=== PATIENT | male | born 1945 | race Caucasian/White ===

== ENCOUNTER → 2016-09-18 | Outpatient (CLI) | payer MEDICARE ==
[~2016-09-18] MED LIST: ALPR.25T PO; AMLO10TA82 PO; ASP81TEC PO; FISH1CAP15 PO; HCTZ12.5T PO; IRBE300T9 PO; METO-272 PO; METO25TA PO; MULT-418 PO; TADA2.5T PO
[2016-09-18 09:55] LABS: BASOPHILS % (AUTO) 0 % (0-10); EOSINOPHILS # (AUTO) 0.1 10^3/uL (0.0-0.3); EOSINOPHILS % (AUTO) 1 % (0-10); LYMPHOCYTES # (AUTO) 1.5 X 10^3 (1.0-4.0); LYMPHOCYTES % (AUTO) 34 % (12-44); MEAN CORPUSCULAR HEMOGLOBIN 33 PG (25-34); MEAN CORPUSCULAR HGB CONC 36 G/DL (32-36); MEAN CORPUSCULAR VOLUME 92 FL (80-99); MEAN PLATELET VOLUME 9.4 FL (7.4-10.4); MONOCYTES # (AUTO) 0.6 X 10^3 (0.0-1.0); MONOCYTES % (AUTO) 13 % (0-12); NEUTROPHILS # (AUTO) 2.3 X 10^3 (1.8-7.8); NEUTROPHILS % (AUTO) 52 % (42-75); PLATELET COUNT 219 10^3/uL (130-400); RED CELL DISTRIBUTION WIDTH 11.8 % (10.0-14.5); RETICULOCYTE % 0.79 % (0.50-2.40); WHITE BLOOD COUNT 4.5 10^3/uL (4.3-11.0)
[2016-09-18 10:00] LABS: PATH WILL NEED TO REVIEW SMEAR PATH TO REVIEW
[2016-09-18 10:15] LABS: ANION GAP 9 MMOL/L (5-14); BLOOD UREA NITROGEN 10 MG/DL (7-18); BUN/CREATININE RATIO 12; CARBON DIOXIDE 25 MMOL/L (21-32); CHLORIDE 99 MMOL/L (98-107); CREATININE SERUM 0.83 MG/DL (0.60-1.30); GFR ESTIMATED > 60; GLUCOSE 97 MG/DL (70-105); SODIUM 133 MMOL/L (135-145)
[2016-09-18 10:32] LABS: BAND NEUTROPHILS 2 %; BASOPHILS % (MANUAL) 0 %; EOSINOPHILS % (MANUAL) 0 %; LYMPHOCYTES % (MANUAL) 40 %; NEUTROPHILS % (MANUAL) 49 %; REACTIVE LYMPHOCYTES 1 %
== END ==
LOC: LAB 09:34
PROVIDERS: ATTEND Internal Medicine
DX: D72.819 Decreased white blood cell count, unspecified (principal); E87.5 Hyperkalemia; D64.9 Anemia, unspecified
CPT/HCPCS: 36415; 80048; 85007; 85027; 85045

== ENCOUNTER → 2018-01-18 | Outpatient (CLI) | payer MEDICARE ==
[~2018-01-18] MED LIST changes: -METO-272 PO; +METO-370 PO
== END ==
LOC: CARD 08:32
PROVIDERS: ATTEND Internal Medicine Cardiovascular Disease
DX: I10 Essential (primary) hypertension (principal); R00.2 Palpitations; I08.1 Rheumatic disorders of both mitral and tricuspid valves
CPT/HCPCS: 93306

== ENCOUNTER → 2020-08-13 | Outpatient (CLI) | payer MEDICARE ==
[~2020-08-13] MED LIST changes: -METO-370 PO; +METO50TA7 PO
== END ==
LOC: CARD 10:02
PROVIDERS: ATTEND Internal Medicine Cardiovascular Disease
DX: I11.9 Hypertensive heart disease without heart failure (principal); I34.0 Nonrheumatic mitral (valve) insufficiency
CPT/HCPCS: 93306

== ENCOUNTER → 2020-08-20 | Outpatient (CLI) | payer MEDICARE ==
[~2020-08-20] VITALS: Ht 170 cm; Wt 80.0 kg
[~2020-08-20] MED LIST changes: +CATHETER FLUSH 10 ML SYR IV PRN
[2020-08-20 08:54] VITALS: BP 136/80
--- NOTE | 2020-08-20 11:09 | Cardiology Stress Test Report ---
Stress Test Report Date of Procedure/Referring: Date of Procedure: Aug 20, 2020 PCP Ekaterina Lazo MD Admitting Physician Tavia Molina MD Indications: Hypertension Baseline Heart Rate: 85 Baseline Blood Pressure: Blood Pressure Systolic: 136 Blood Pressure Diastolic: 80 Vital Signs Date Time Temp Pulse Resp B/P (MAP) Pulse Ox O2 Delivery O2 Flow Rate FiO2 08/20/20 08:54 85 136/80 (98) 98 Baseline Vital Signs Vital Signs Date Time Temp Pulse Resp B/P (MAP) Pulse Ox O2 Delivery O2 Flow Rate FiO2 08/20/20 08:54 85 136/80 (98) 98 Baseline EKG: Baseline EKG: Atrial fibrillation Summary: After explaining the procedure and details to the patient, he signed the consent and was brought to the stress nuclear laboratory. Patient exercised on standard Alexei protocol, EKG, heart rate and blood pressure were monitored continuously, resting and stress doses of radio tracer were injected, imaging was acquired and reviewed in the short axis, horizontal long axis and vertical long axis views Patient was able to exercise for a total of [ ] minutes on Alexei protocol, METs [ ] Maximum heart rate [ ] Maximum blood pressure [ ] Stress EKG, Minimal nondiagnostic changes Recovery EKG, Return to baseline TID: 0.96 SSS: 1 SDS: 1 EF: 58 Conclusion: 1. Fair exercise tolerance for a total of 5 minutes on standard Alexei protocol, 7 METS achieving 93% of maximal expected heart rate 2. Baseline atrial fibrillation noted incidentally during stress test. Patient was started on Eliquis and will arrange for follow-up as an outpatient 3. Appropriate heart rate and blood pressure response to exercise return to baseline during recovery with peak blood pressure 172/82 4. No ischemia or infarction on SPECT images 5. Normal left ventricular size, EF 58%, gated images are unreliable due to underlying atrial fibrillation Copy Copies To 1: TAVIA MOLINA MD, BASHAR J MD Aug 20, 2020 11:09
== END ==
LOC: CARD 07:30
PROVIDERS: ATTEND Internal Medicine Cardiovascular Disease
DX: I10 Essential (primary) hypertension (principal)
CPT/HCPCS: 78452; 93017; A9502

== ENCOUNTER → 2020-09-24 | Outpatient (CLI) | payer MEDICARE ==
[~2020-09-24] MED LIST changes: +ALPR0.25 PO; +AMLO-251 PO; +ASPI-1238 PO; -CATHETER FLUSH 10 ML SYR IV PRN; +HYDR25TA4 PO; +IRBE300T17 PO; +MULT-567 PO; +OMEG-109 PO; +RIVA20TA PO; +TADA20TA54 PO
== END ==
LOC: LABNPT 08:49
PROVIDERS: ATTEND Internal Medicine Cardiovascular Disease
DX: Z01.812 Encounter for preprocedural laboratory examination (principal); Z20.822 Contact with and (suspected) exposure to COVID-19
CPT/HCPCS: 87635

== ENCOUNTER 2020-09-26 10:30 | Day surgery (SDC) | payer MEDICARE ==
[~2020-09-26] VITALS: Ht 170 cm; Wt 81.0 kg
[2020-09-26] VITALS (12 sets, daily range): BP systolic 80–126; BP diastolic 59–91
[2020-09-26 09:28] LABS: HEMATOCRIT 40 % (40-54); MEAN CORPUSCULAR HEMOGLOBIN 34 pg (25-34); MEAN CORPUSCULAR HGB CONC 35 g/dL (32-36); MEAN CORPUSCULAR VOLUME 95 fL (80-99); MEAN PLATELET VOLUME 10.1 fL (9.0-12.2); PLATELET COUNT 208 10^3/uL (130-400); WHITE BLOOD COUNT 4.4 10^3/uL (4.3-11.0)
--- NOTE | 2020-09-26 09:30 | Diagnostic Imaging Report ---
INDICATION: Arrhythmia. Portable chest 9:26 AM FINDINGS: Heart size and pulmonary vascularity are normal. Lungs are clear. There are no effusions or pneumothoraces. IMPRESSION: Negative chest. Dictated by: Dictated on workstation # [id number]
--- NOTE | 2020-09-26 09:34 | Conscious Sedation/ASA ---
Conscious Sedation Pre-Proced Time 09:34 ASA Score 3 For ASA 3 and 4: Consider anesthesia and medical clearance. Also, for patients with a history of failed moderate sedation consider anesthesia. Airway Lungs Heart ASA score ASA 1: a normal healthy patient ASA 2: a patient with a mild systemic disease (mid diabetes, controlled hypertension, obesity x ASA 3: a patient with a severe systemic disease that limits activity (angina, COPD, prior Myocardial infarction) ASA 4: a patient with an incapacitating disease that is a constant threat to life (CHF, renal failure) ASA 5: a moribund patient not expected to survive 24 hrs. (ruptured aneurysm) ASA 6: a declared brain- patient whose organs are being harvested. For emergent operations, add the letter E after the classification Mallampati Classification Grade 3 Sedation Plan Analgesia, Amnesia, Plan communicated to team members, Discussed options with patient/fam, Discussed risks with patient/fam The patient is an appropriate candidate to undergo the planned procedure, sedation, and anesthesia. The patient immediately re-assessed prior to indication. STEPHANIE CHEW MD September 26, 2020 09:34
[2020-09-26 09:42] LABS: INR 1.2 (0.8-1.4); PROTHROMBIN TIME PATIENT 15.5 SEC (12.2-14.7)
[2020-09-26 09:47] LABS: ALANINE AMINOTRANSFERASE 15 U/L (0-55); ALBUMIN 4.2 GM/DL (3.2-4.5); ALKALINE PHOSPHATASE 42 U/L (40-136); BILIRUBIN,TOTAL 0.9 MG/DL (0.1-1.0); BUN/CREATININE RATIO 12; CALCIUM 8.6 MG/DL (8.5-10.1); CARBON DIOXIDE 27 MMOL/L (21-32); CHLORIDE 100 MMOL/L (98-107); CHOLESTEROL 168 MG/DL (< 200); CREATININE SERUM 0.95 MG/DL (0.60-1.30); GFR ESTIMATED > 60; GLUCOSE 114 MG/DL (70-105); HDL CHOLESTEROL 58 MG/DL (40-60); POTASSIUM 4.2 MMOL/L (3.6-5.0); SODIUM 134 MMOL/L (135-145); TOTAL PROTEIN 6.9 GM/DL (6.4-8.2); TRIGLYCERIDES 44 MG/DL (<150); VLDL CHOLESTEROL 9 MG/DL (5-40)
--- NOTE | 2020-09-26 10:10 | Cardioversion ---
Cardioversion PROCEDURE PHYSICIAN: Stephanie Lazo DATE OF PROCEDURE: 09/26/20 DIRECT EXTERNAL ELECTRICAL CARDIOVERSION: Indications: Atrial Fibrillation Preoperative diagnoses: Atrial Fibrillation Postoperative diagnosis: Sinus rhythm, Successful Electrical Cardioversion Anesthesia: By Anesthesia services Complications: None Specimen: None Contrast: 0 Flouroscopy: none Procedure Details: The patient was brought the solar lab technician after informed consent was taken, all the risks and complications were explained including the risk of stroke. Electrical cardioversion was carried out with anesthesia support with propofol. 200 joules of synchronized shock was delivered through external patches which promptly re stored sinus rhythm. The patient tolerated the procedure well. Conclusions: Successful RIOS with electrical cardioversion with no complication Final Diagnosis: Paroxysmal atrial fibrillation Palpitation Hypertension Hyperlipidemia STEPHANIE LAZO MD September 26, 2020 10:10
--- NOTE | 2020-09-26 10:13 | Discharge Inst-Cardiology ---
Discharge Inst-Cardiac Problems Reviewed?: Yes Discharge Medications Continued Medications: Alprazolam (Xanax) 0.25 Mg Tablet 0.25 MG PO TID PRN for ANXIETY, TAB Amlodipine Besylate (Amlodipine Besylate) 10 Mg Tablet 10 MG PO DAILY, TAB Aspirin (Aspirin EC) 81 Mg Tablet.dr 81 MG PO HS, TAB Hydrochlorothiazide (Hydrochlorothiazide) 25 Mg Tablet 25 MG PO DAILY, TAB Irbesartan (Irbesartan) 300 Mg Tablet 300 MG PO DAILY, TAB Metoprolol Succinate (Metoprolol Succinate) 50 Mg Tab.er.24h 50 MG PO HS Multivitamin (Multivitamins) 1 Each Tablet 1 EACH PO HS, TAB [place]-3 Fatty Acids/Fish Oil (Fish Oil 1,200 mg Softgel) 1 Each Capsule 1 EACH PO DAILY, CAP Rivaroxaban (Xarelto) 20 Mg Tablet 20 MG PO 1800 W/ DINNER, TAB Tadalafil (Tadalafil) 20 Mg Tablet 10 MG PO UD PRN for PRN, TAB TAKES OF A 20MG TAB Patient Instructions Patient Instructions: Appointment with Dr. Mckinley's office in 2 to 4 weeks Activity & Diet Discharge Diet: Low Sodium Diet STEPHANIE CHEW MD September 26, 2020 10:13 am
[~2020-09-26 10:30] MED LIST changes: +LIDOCAINE 2% VISCOUS 15 ML UDC ONE; +LIDOCAINE 2% VISCOUS 15 ML UDC PO ONE; +MIDAZOLAM 5 MG/5 ML (VERSED) VIAL ONE; +NS IV 1000 ML 1,000 ML IV SCH; +NS IV 1000 ML 1,000 ML ONE; +proPOfol 200 MG/20 ML (DIPRIVAN) VIAL IV ONE
--- NOTE | 2020-09-26 14:20 | Anesthesia-General Post-Op ---
MAC Patient Condition Mental Status/LOC: Same as Preop Cardiovascular: Satisfactory Nausea/Vomiting: Absent Respiratory: Satisfactory Pain: Controlled Complications: Absent Post Op Complications Complications None Follow Up Care/Instructions Patient Instructions None needed. Anesthesiology Discharge Order Discharge Order Patient is doing well, no complaints, stable vital signs, no apparent adverse anesthesia problems. No complications reported per nursing. KERVIN BROWN CRNA September 26, 2020 14:20
== END 2020-09-26 12:05 | disposition home or self-care (01) ==
LOC: CATH 10:30 → SDC 10:37 → CATH 12:05
PROVIDERS: ATTEND Internal Medicine Cardiovascular Disease
DX: I48.0 Paroxysmal atrial fibrillation (principal); I10 Essential (primary) hypertension; I27.20 Pulmonary hypertension, unspecified; I65.23 Occlusion and stenosis of bilateral carotid arteries; I08.1 Rheumatic disorders of both mitral and tricuspid valves; E78.5 Hyperlipidemia, unspecified; E66.9 Obesity, unspecified; Z68.28 Body mass index [BMI] 28.0-28.9, adult; Z91.018 Allergy to other foods; Z79.82 Long term (current) use of aspirin; Z79.899 Other long term (current) drug therapy; Z83.3 Family history of diabetes mellitus
CPT/HCPCS: 36415; 71045; 80053; 80061; 85027; 85610; 85730; 87081; 92960; 93005; 93312

== ENCOUNTER 2021-03-12 05:34 | Outpatient (CLI) | payer MEDICARE ==
[~2021-03-12] VITALS: Ht 170.2 cm; Wt 82.6 kg
[~2021-03-12 05:34] MED LIST changes: -LIDOCAINE 2% VISCOUS 15 ML UDC ONE; -LIDOCAINE 2% VISCOUS 15 ML UDC PO ONE; -MIDAZOLAM 5 MG/5 ML (VERSED) VIAL ONE; -NS IV 1000 ML 1,000 ML IV SCH; -NS IV 1000 ML 1,000 ML ONE; -TADA20TA54 PO; +TADA20TA70 PO; -proPOfol 200 MG/20 ML (DIPRIVAN) VIAL IV ONE
== END 2021-03-13 14:10 | disposition home or self-care (01) ==
LOC: PREOP 05:34
PROVIDERS: ATTEND Surgery
DX: Z01.818 Encounter for other preprocedural examination (principal)

== ENCOUNTER 2021-03-19 07:03 | Day surgery (SDC) | payer MEDICARE ==
[~2021-03-19] VITALS: Ht 170 cm; Wt 82.6 kg
[2021-03-19] MEDS ORDERED: LACTATED RINGERS 1,000 ML IV STA (07:11)
[2021-03-19 07:29] VITALS: BP 151/86
[2021-03-19] MEDS ORDERED: proPOfol 200 MG/20 ML (DIPRIVAN) VIAL IV ONE (07:55)
[2021-03-19 08:35] VITALS: BP 105/62
[2021-03-19 08:40] VITALS: BP 106/57
--- NOTE | 2021-03-19 08:40 | Progress Note-Post Operative ---
Post-Operative Progess Note Surgeon (s)/Airplane Rental Clerk (s) Surgeon LIAM CHAPA DO Airplane Rental Clerk: na Pre-Operative Diagnosis history of polyps Post-Operative Diagnosis normal colon Procedure & Operative Findings Date of Procedure 03/19/21 Procedure Performed/Findings colonoscopy Anesthesia Type per loaders Estimated Blood Loss Estimated blood loss (mL): none Specimens/Packing Specimens Removed na LIAM CHAPA DO Mar 19, 2021 08:40
--- NOTE | 2021-03-19 08:41 | Discharge Inst-Simple/Standard ---
Discharge Inst-Standard Patient Instructions/Follow Up Plan of Care/Instructions/FU: Follow up on as needed basis. Activity as Tolerated: Yes Discharge Diet: Regular Diet LIAM CHAPA DO Mar 19, 2021 08:41
[2021-03-19 08:45] VITALS: BP 106/57
[2021-03-19 09:07] VITALS: BP 108/63
--- NOTE | 2021-03-19 19:17 | OPERATIVE REPORT ---
DATE OF SERVICE: 03/19/2021 PREOPERATIVE DIAGNOSIS: History of polyps. POSTOPERATIVE DIAGNOSIS: Normal colon. PROCEDURE: Colonoscopy. SURGEON: Liam Eid DO ANESTHESIA: Per TREKKING GUIDE. ESTIMATED BLOOD LOSS: None. COMPLICATIONS: None. INDICATIONS: The patient is a 75-year-old male with history of polyps. He was recommended repeat colonoscopy. He understands risks and benefits of procedure and wishes to proceed. Consent was signed in the chart. DESCRIPTION OF PROCEDURE: The patient was taken to the endoscopy suite, placed in left lateral recumbent position. Timeout was performed. Digital rectal exam was performed. No palpable polyps, masses or ulcerations. Scope was inserted in the rectum and advanced all the way to cecum with minimal difficulty. Prepped and some stool in it, but irrigation and suction allowed adequate visualization. Scope was then slowly retracted back. No polyps, masses or ulcerations in the cecum, ascending, transverse, descending and sigmoid colon. Once in the rectum, scope was retroflexed noting no other pathology. Scope was returned to its normal position, slowly withdrawn until completely removed. The patient tolerated procedure well without any complications, taken to recovery room in stable condition. RECOMMENDATIONS: The patient will need to follow up on an as needed basis. Due to age, he does not need a repeat colonoscopy unless having issues. Job ID: [id number] DocumentID: [id number] Dictated Date: 03/19/2021 08:42:55 Editor Dictionary Date: 03/19/2021 16:56:13 Dictated By: LIAM EID DO
--- NOTE | 2021-03-20 13:22 | Anesthesia-General Post-Op ---
MAC Post Op Complications Complications None Follow Up Care/Instructions Patient Instructions None needed. Anesthesiology Discharge Order Discharge Order Patient is doing well, no complaints, stable vital signs, no apparent adverse anesthesia problems. No complications reported per nursing. SAMUEL MORRISON CRNA Mar 20, 2021 13:22
== END 2021-03-19 09:15 | disposition home or self-care (01) ==
LOC: ENDO 07:03
PROVIDERS: ATTEND Surgery
DX: Z12.11 Encounter for screening for malignant neoplasm of colon (principal); I10 Essential (primary) hypertension; L98.9 Disorder of the skin and subcutaneous tissue, unspecified; Z86.010 Personal history of colon polyps; Z79.01 Long term (current) use of anticoagulants; Z79.82 Long term (current) use of aspirin; Z79.899 Other long term (current) drug therapy; Z83.3 Family history of diabetes mellitus

== ENCOUNTER 2021-07-04 05:30 | Outpatient (CLI) | payer MEDICARE ==
[~2021-07-04] VITALS: Ht 170.2 cm; Wt 81.8 kg
== END 2021-07-04 15:09 ==
LOC: PREOP 05:30
PROVIDERS: ATTEND Surgery
DX: Z01.818 Encounter for other preprocedural examination (principal)

== ENCOUNTER 2021-07-11 10:26 | Day surgery (SDC) | payer MEDICARE ==
[~2021-07-11] VITALS: Ht 170.2 cm; Wt 81.8 kg
[2021-07-11] VITALS (11 sets, daily range): BP systolic 118–164; BP diastolic 71–85
[2021-07-11] MEDS ORDERED: LACTATED RINGERS 1,000 ML IV PRN (10:45)
--- NOTE | 2021-07-11 11:10 | Progress Note-Pre Operative ---
Pre-Operative Progress Note H&P Reviewed The H&P was reviewed, patient examined and no changes noted. Date Seen by Provider: Jul 11, 2021 Time Seen by Provider: 11:09 Date H&P Reviewed: Jul 11, 2021 Time H&P Reviewed: 11:09 Pre-Operative Diagnosis: melenama scalp LIAM CHAPA DO Jul 11, 2021 11:09
[2021-07-11] MEDS ORDERED: LIDOCAINE/EPI 1%-1:200,000 (XYLOCAINE) 30 ML VIAL ONE (12:03)
[2021-07-11] MEDS ORDERED: proPOfol 200 MG/20 ML (DIPRIVAN) VIAL IV ONE (12:48)
[2021-07-11] MEDS ORDERED: ONDANSETRON 4 MG/2 ML (SDV) Z0FRAN ONE (12:48)
[2021-07-11] MEDS ORDERED: fentaNYL INJ 100 MCG/2 ML AMP ONE (12:48)
[2021-07-11] MEDS ORDERED: LIDOCAINE PF 2% 5 ML (XYLOCAINE) VIAL ONE (12:48)
[2021-07-11] MEDS ORDERED: ceFAZolin INJECTION 1,000 MG VIAL IV ONE (13:00)
[2021-07-11] MEDS ORDERED: ceFAZolin INJECTION 2,000 MG ONE (13:08)
[2021-07-11] MEDS ORDERED: GLYCOPYRROLATE 0.2 MG/ML (ROBINUL) 2 ML VIAL ONE (13:09)
[2021-07-11] MEDS ORDERED: MUPIROCIN 2% OINT 22 GM (BACTROBAN) TUBE ONE (13:31)
[2021-07-11] MEDS ORDERED: SEVOFLURANE (ULTANE) 15 ML INHAL SOLN ONE (13:43)
--- NOTE | 2021-07-11 13:48 | Anesthesia-General Post-Op ---
General Patient Condition Mental Status/LOC: Same as Preop Cardiovascular: Satisfactory Nausea/Vomiting: Absent Respiratory: Satisfactory Pain: Controlled Complications: Absent Post Op Complications Complications None Follow Up Care/Instructions Patient Instructions None needed. Anesthesia/Patient Condition Patient Condition Patient is doing well, no complaints, stable vital signs, no apparent adverse anesthesia problems. PADMINI NIETO DO Jul 11, 2021 13:48
[2021-07-11] MEDS ORDERED: ONDANSETRON 4 MG/2 ML (SDV) Z0FRAN IVP PRN (14:00)
[2021-07-11] MEDS ORDERED: morphine INJ 10 MG/ML 1ML (SYR OR VIAL) IVP ONE (14:00)
--- NOTE | 2021-07-11 14:16 | Discharge Inst-Simple/Standard ---
Discharge Inst-Standard Patient Instructions/Follow Up Plan of Care/Instructions/FU: 12-14 days for Suture removal Ragini Activity as Tolerated: Yes Discharge Diet: Regular Diet Other Inst to Patient Follow up Appt: Make appointment for 12-14 days for suture removal. Instructions: No strenuous activity. May shower in 24 hours, no tub bath or soaking. Use incentive spirometer at home as directed. No Smoking Skin/Wound Care: Keep area clean and dry. Any issues be seen at that time. Symptoms to Report: Appetite Changes, Extremity Discoloration, Numbness/Tingling, Swelling Increased, Bleeding Excessive, Eyesight Changes, Pain Increased, Urine Color Change, Constipation(Persistent), Fever over 101 degree F, Pain/Pressure in chest, Urinating Difficulty, Cough Up/Vomit Blood, Heart Beat Irreg/Pounding, Pain/Pressure in jaw, Vaginal Bleeding Increase, Cramps in feet or legs, Lightheadedness, Pain/Pressure in shoulder, Diarrhea(Persistent), Memory Changes Suddenly, Questions/Concerns, Weight gain consecutive days, Dizziness/Fainting, Nausea/Vomiting, Shortness of Breath, Weight gain over 2 pounds If questions or concerns contact your physician Or seek help at emergency department. LIAM CHAPA DO Jul 11, 2021 14:16
--- NOTE | 2021-07-11 21:12 | OPERATIVE REPORT ---
DATE OF SERVICE: 07/11/2021 PREOPERATIVE DIAGNOSIS: Melanoma, scalp. POSTOPERATIVE DIAGNOSIS: Melanoma, scalp. PROCEDURE: Wide excision of scalp melanoma, 6 x 3 cm. SURGEON: Liam Eid DO ANESTHESIA: General. ESTIMATED BLOOD LOSS: Minimal. COMPLICATIONS: None. INDICATIONS: The patient is a 75-year-old male with a melanoma on the scalp. He had previous shave biopsy. He understands risks and benefits of wide excision of scalp melanoma and wishes to proceed. Consent was signed in the chart. DESCRIPTION OF PROCEDURE: The patient was taken to the operating suite, was prepped and draped in sterile fashion. Surgical pause was performed. Local anesthetic was infiltrated around the lesion. A 15 blade scalpel was used to make a skin incision measuring 6 x 3 cm. Cautery was used to remove the skin and subcutaneous tissue. The specimen was then tagged with long suture left lateral and short suture superior. The skin was then closed using 2-0 Prolene in a simple running fashion. The area was washed and dried and sterile bandages were applied. The patient tolerated procedure well without any complications, taken to recovery room in stable condition. Job ID: [id number] DocumentID: [id number] Dictated Date: 07/11/2021 15:58:54 Director Enterprise Sales Date: 07/11/2021 21:11:26 Dictated By: LIAM EID DO
== END 2021-07-11 15:30 ==
LOC: SDC 10:26
PROVIDERS: ATTEND Surgery
DX: C43.4 Malignant melanoma of scalp and neck (principal); L90.5 Scar conditions and fibrosis of skin; Z79.01 Long term (current) use of anticoagulants
CPT/HCPCS: 87081

== ENCOUNTER 2021-12-04 08:24 | Day surgery (SDC) | payer MEDICARE ==
[~2021-12-04] VITALS: Ht 170.2 cm; Wt 81.9 kg
[2021-12-04] MEDS ORDERED: NS IV 1000 ML 0 ML ONE (08:29)
[2021-12-04] MEDS ORDERED: NS IV 1000 ML 1,000 ML IV ONE (08:30)
== END 2021-12-04 09:57 | disposition home or self-care (01) ==
LOC: CATH 08:24
PROVIDERS: ATTEND Internal Medicine Cardiovascular Disease
DX: I48.0 Paroxysmal atrial fibrillation (principal); Z53.8 Procedure and treatment not carried out for other reasons
CPT/HCPCS: 93005

== ENCOUNTER 2021-12-10 20:34 | Emergency (ER) | payer MEDICARE ==
[~2021-12-10] VITALS: Ht 170.2 cm; Wt 81.6 kg
[2021-12-10 21:37] LABS: BASOPHILS % (AUTO) 0 % (0-10); EOSINOPHILS % (AUTO) 0 % (0-10); HEMATOCRIT 37 % (40-54); HEMOGLOBIN 14.2 g/dL (13.3-17.7); LYMPHOCYTES # (AUTO) 1.3 10^3/uL (1.0-4.0); LYMPHOCYTES % (AUTO) 16 % (12-44); MEAN CORPUSCULAR HEMOGLOBIN 34 pg (25-34); MEAN CORPUSCULAR HGB CONC 39 g/dL (32-36); MEAN CORPUSCULAR VOLUME 88 fL (80-99); MEAN PLATELET VOLUME 9.2 fL (9.0-12.2); MONOCYTES # (AUTO) 0.9 10^3/uL (0.0-1.0); MONOCYTES % (AUTO) 12 % (0-12); NEUTROPHILS # (AUTO) 5.6 10^3/uL (1.8-7.8); NEUTROPHILS % (AUTO) 72 % (42-75); PLATELET COUNT 215 10^3/uL (130-400); WHITE BLOOD COUNT 7.8 10^3/uL (4.3-11.0)
[2021-12-10 22:01] LABS: ALBUMIN 4.7 GM/DL (3.2-4.5); CHLORIDE 85 MMOL/L (98-107); POTASSIUM 4.1 MMOL/L (3.6-5.0)
[2021-12-10 22:02] LABS: CALCIUM 9.1 MG/DL (8.5-10.1)
[2021-12-10 22:03] LABS: GLUCOSE 108 MG/DL (70-105); TOTAL PROTEIN 7.1 GM/DL (6.4-8.2)
[2021-12-10 22:04] LABS: CARBON DIOXIDE 24 MMOL/L (21-32)
[2021-12-10 22:05] LABS: BILIRUBIN,TOTAL 1.1 MG/DL (0.1-1.0)
[2021-12-10 22:07] LABS: ALKALINE PHOSPHATASE 44 U/L (40-136); CREATININE SERUM 0.98 MG/DL (0.60-1.30); GFR ESTIMATED 79
[2021-12-10 22:07] LABS: BILIRUBIN,URINE NEGATIVE (NEGATIVE); CLARITY,URINE CLEAR; COLOR,URINE YELLOW; GLUCOSE, URINE (UA) NEGATIVE (NEGATIVE); KETONES,URINE NEGATIVE (NEGATIVE); LEUKOCYTE ESTERASE ,URINE NEGATIVE (NEGATIVE); NITRITE,URINE NEGATIVE (NEGATIVE); PROTEIN,URINE NEGATIVE (NEGATIVE)
[2021-12-10 22:08] LABS: BUN/CREATININE RATIO 8
[2021-12-10 22:10] LABS: ALANINE AMINOTRANSFERASE 17 U/L (0-55)
[2021-12-10 22:11] LABS: SODIUM 117 MMOL/L (135-145)
[2021-12-10] MEDS ORDERED: NS IV 1000 ML 1,000 ML IV SCH ×2 (22:15)
[2021-12-10 22:24] LABS: BACTERIA,URINE NEGATIVE /HPF; WBC,URINE 0-2 /HPF
--- NOTE | 2021-12-10 23:25 | ED General ---
General Chief Complaint: General Problems/Pain Stated Complaint: WEAKNESS,GARCIA,ALLERGIC REACTION TO MED Nursing Triage Note: PT AMBULATORY TO ROOM WITH FAMILY. PT STATES HE STARTED TAKING MULTAC AND HAS BEEN EXTREMELY FATIGUED, SHAKY, FAINT FEELING, AND HAVING A COUGH. PT STATES SYMPTOMS STARTED APPROX 3 WEEKS AGO BUT HAVE WORSENED. PT REPORTS HE LOOKED UP SIDE EFFECTS OF HIS MEDICATIONS AND HE HAS "EVERY ONE OF THEM." Source of Information: Patient Exam Limitations: No Limitations History of Present Illness Date Seen by Provider: Dec 10, 2021 Allergies and Home Medications Allergies Uncoded Allergies: shrimp (Allergy, Mild, HIVES, 07/04/21) Patient Home Medication List Alprazolam (Xanax) 0.25 Mg Tablet, 0.25 MG PO TID PRN for ANXIETY, (Reported) Entered as Reported by: SADIE ROD on 09/26/20938 Amlodipine Besylate (Amlodipine Besylate) 10 Mg Tablet, 10 MG PO DAILY, (Reported) Entered as Reported by: SADIE ROD on 09/26/20939 Aspirin (Aspirin EC) 81 Mg Tablet.dr, 81 MG PO HS, (Reported) Entered as Reported by: SADIE ROD on 09/26/20939 Hydrochlorothiazide (Hydrochlorothiazide) 25 Mg Tablet, 25 MG PO DAILY, (Reported) Entered as Reported by: SADIE ROD on 09/26/20939 Irbesartan (Irbesartan) 300 Mg Tablet, 300 MG PO DAILY, (Reported) Entered as Reported by: SADIE ROD on 09/26/20 09 Metoprolol Succinate (Metoprolol Succinate) 50 Mg Tab.er.24h, 50 MG PO HS, (Reported) Entered as Reported by: DINORAH ROCKWELL on 09/18/151823 Multivitamin (Multivitamins) 1 Each Tablet, 1 EACH PO HS, (Reported) Entered as Reported by: SADIE ROD on 09/26/20938 [place]-3 Fatty Acids/Fish Oil (Fish Oil 1,200 mg Softgel) 1 Each Capsule, 1 EACH PO DAILY, (Reported) Entered as Reported by: SADIE ROD on 09/26/20938 Rivaroxaban (Xarelto) 20 Mg Tablet, 20 MG PO 1800 W/ DINNER, (Reported) Entered as Reported by: SADIE ROD on 09/26/20 0921 Past Cqnlzcf-Licosh-Zmxvrd Hx Patient Social History Tobacco Use?: No Use of E-Cig and/or Vaping dev: No Substance use?: No Alcohol Use?: No Immunizations Up To Date Tetanus Booster (TDap): Unknown Influenza Vaccine Up-to-Date: Yes; Up-to-Date First/Initial COVID19 Vaccinat: 06/04/20 Second COVID19 Vaccination Antoni: 07/05/20 Third COVID19 Vaccination Date: 03/11/21 Seasonal Allergies Seasonal Allergies: No Past Medical History Surgeries: Yes (plantar warts removed right foot) Vasectomy Respiratory: No Currently Using CPAP: No Currently Using BIPAP: No Cardiac: Yes (MVP, PVC, CARDIOVERSION) Atrial Fibrillation, Heart Murmur, Hypertension Neurological: No Genitourinary: No Gastrointestinal: No Musculoskeletal: No Endocrine: No HEENT: No Cancer: No Skin Psychosocial: Yes Anxiety Integumentary: Yes (SCALP) Blood Disorders: No Family Medical History No Pertinent Family Hx Physical Exam Vital Signs Vital Signs - First Documented 12/10/21 21:00 Temp 36.8 Pulse 59 Resp 16 B/P (MAP) 160/80 (106) Pulse Ox 98 Capillary Refill : Height, Weight, BMI Height: 5'8.00" Weight: 175lbs. 0.0oz. 79.309772aa; 28.00 BMI Method:Estimated Procedures/Interventions Suture Size: 5-0 Progress/Results/Core Measures Suspected Sepsis SIRS Temperature: Pulse: 59 Respiratory Rate: 16 Laboratory Tests 12/10/21 21:30: White Blood Count 7.8 Blood Pressure 160 /80 Mean: 106 Laboratory Tests 12/10/21 21:30: Creatinine 0.98, Platelet Count 215, Total Bilirubin 1.1H Results/Orders Lab Results Laboratory Tests Test 12/10/21 21:30 12/10/21 22:04 Range/Units White Blood Count 7.8 4.3-11.0 10^3/uL Red Blood Count 4.14 L 4.30-5.52 10^6/uL Hemoglobin 14.2 13.3-17.7 g/dL Hematocrit 37 L 40-54 % Mean Corpuscular Volume 88 80-99 fL Mean Corpuscular Hemoglobin 34 25-34 pg Mean Corpuscular Hemoglobin Concent 39 H 32-36 g/dL Red Cell Distribution Width 11.1 10.0-14.5 % Platelet Count 215 130-400 10^3/uL Mean Platelet Volume 9.2 9.0-12.2 fL Immature Granulocyte % (Auto) 0 % Neutrophils (%) (Auto) 72 42-75 % Lymphocytes (%) (Auto) 16 12-44 % Monocytes (%) (Auto) 12 0-12 % Eosinophils (%) (Auto) 0 0-10 % Basophils (%) (Auto) 0 0-10 % Neutrophils # (Auto) 5.6 1.8-7.8 10^3/uL Lymphocytes # (Auto) 1.3 1.0-4.0 10^3/uL Monocytes # (Auto) 0.9 0.0-1.0 10^3/uL Eosinophils # (Auto) 0.0 0.0-0.3 10^3/uL Basophils # (Auto) 0.0 0.0-0.1 10^3/uL Immature Granulocyte # (Auto) 0.0 0.0-0.1 10^3/uL Sodium Level 117 *L 135-145 MMOL/L Potassium Level 4.1 3.6-5.0 MMOL/L Chloride Level 85 L 98-107 MMOL/L Carbon Dioxide Level 24 21-32 MMOL/L Anion Gap 8 5-14 MMOL/L Blood Urea Nitrogen 8 7-18 MG/DL Creatinine 0.98 0.60-1.30 MG/DL Estimat Glomerular Filtration Rate 79 BUN/Creatinine Ratio 8 Glucose Level 108 H 70-105 MG/DL Calcium Level 9.1 8.5-10.1 MG/DL Corrected Calcium 8.5-10.1 MG/DL Magnesium Level 2.0 1.6-2.4 MG/DL Total Bilirubin 1.1 H 0.1-1.0 MG/DL Aspartate Amino Transf (AST/SGOT) 14 5-34 U/L Alanine Aminotransferase (ALT/SGPT) 17 0-55 U/L Alkaline Phosphatase 44 40-136 U/L C-Reactive Protein High Sensitivity 0.01 0.00-0.50 MG/DL Total Protein 7.1 6.4-8.2 GM/DL Albumin 4.7 H 3.2-4.5 GM/DL Influenza Type A (RT-PCR) Not Detected Not Detecte Influenza Type B (RT-PCR) Not Detected Not Detecte SARS-CoV-2 RNA (RT-PCR) Not Detected Not Detecte Urine Color YELLOW Urine Clarity CLEAR Urine pH 7.0 5-9 Urine Specific Kelly 1.010 L 1.016-1.022 Urine Protein NEGATIVE NEGATIVE Urine Glucose (UA) NEGATIVE NEGATIVE Urine Ketones NEGATIVE NEGATIVE Urine Nitrite NEGATIVE NEGATIVE Urine Bilirubin NEGATIVE NEGATIVE Urine Urobilinogen 0.2 < = 1.0 MG/DL Urine Leukocyte Esterase NEGATIVE NEGATIVE Urine RBC (Auto) 1+ H NEGATIVE Urine RBC NONE /HPF Urine WBC 0-2 /HPF Urine Squamous Epithelial Cells NONE /HPF Urine Renal Epithelial Cells NONE /HPF Urine Crystals NONE /LPF Urine Bacteria NEGATIVE /HPF Urine Casts NONE /LPF Urine Mucus NEGATIVE /LPF Urine Culture Indicated NO My Orders Orders - GRISEL ALLEN MD Cbc With Automated Diff (12/10/21 21:16) Comprehensive Metabolic Panel (12/10/21 21:16) Hs C Reactive Protein (12/10/21 21:16) Magnesium (12/10/21 21:16) Ua Culture If Indicated (12/10/21 21:16) Ed Iv/Invasive Line Start (12/10/21 21:16) Covid 19 Inhouse Test (12/10/21 21:16) Influenza A And B By Pcr (12/10/21 21:16) Ekg Tracing (12/10/21 21:16) Monitor-Rhythm Ecg Trace Only (12/10/21 21:16) Ns Iv 1000 Ml (Sodium Chloride 0.9%) (12/10/21 22:15) Ns Iv 1000 Ml (Sodium Chloride 0.9%) (12/10/21 22:15) Vital Signs/I&O 12/10/21 12/10/21 21:00 23:48 Temp 36.8 Pulse 59 52 Resp 16 B/P (MAP) 160/80 (106) 107/67 Pulse Ox 98 95 12/11/21 00:00 Intake Total 1000 ml Balance 1000 ml Capillary Refill : Blood Pressure Mean: 106 ECG Initial ECG Impression Date: Dec 11, 2021 Initial ECG Impression Time: 21:26 Initial ECG Rate: 59 Initial ECG Rhythm: Normal Sinus Comment Sinus rhythm with no ST elevation or depression. No abnormal intervals or axis deviation. Departure Impression Primary Impression: Hyponatremia Additional Impression: Weakness Disposition: 01 HOME, SELF-CARE Condition: Stable Departure-Patient Inst. Decision time for Depature: 23:23 Referrals: TAVIA MOLINA MD (PCP/Family) Primary Care Physician Patient Instructions: Hyponatremia (DC) Add. Discharge Instructions: Your hyponatremia (low sodium) is undoubtedly contributing to your weakness and fatigue. You can help improve this by stopping hydrochlorothiazide and lightly salting your food. Continue all other medications as previously directed. Please call Dr. Lazo's office in the morning and discuss your symptoms and the instructions provided in the ER. Ask about your Multaq dosing as well. You should have Dr. Lazo or your primary care provider to check your sodium level again within the next week. Return to the ER if your symptoms are worsening or you do not feel safe at home. Call with questions or concerns. All discharge instructions reviewed with patient and/or family. Voiced understanding. GRISEL ALLEN MD Dec 10, 2021 23:25
[2021-12-10 23:48] VITALS: BP 107/67
== END 2021-12-10 23:49 | disposition home or self-care (01) ==
LOC: EDUNIT# 20:34 → ER 20:37
DX: E87.1 Hypo-osmolality and hyponatremia (principal); Z20.822 Contact with and (suspected) exposure to COVID-19
CPT/HCPCS: 36415; 80053; 81000; 83735; 85025; 86141; 87636; 93005

== ENCOUNTER → 2021-12-19 | Outpatient (CLI) | payer MEDICARE ==
--- NOTE | 2021-12-19 15:54 | Diagnostic Imaging Report ---
PROCEDURE: US Thyroid. TECHNIQUE: Multiple real-time grayscale images were obtained of the thyroid in various projections. INDICATION: Abnormal lab values. FINDINGS: Right lobe measures 6 x 2.5 x 2.3 cm. Left lobe measures 5.8 x 2.8 x 1.8 cm. Isthmus 4 mm. There are 2 well-circumscribed heterogenous, slightly hypoechoic nodules in the right lobe, largest is in the midportion measuring 11 x 9 x 9 mm. No definite calcification is noted. There is a hypoechoic nodule measuring 9 x 5 mm in the left lobe midportion. No associated calcification. IMPRESSION: Bilateral nodules measuring 1 cm in the left. These are heterogeneous to slightly hypoechoic. Well-circumscribed wider than tall. These are considered mildly suspicious. Annual ultrasound followup recommended. TI-RADS 3. Dictated by: Dictated on workstation # [id number]
== END ==
LOC: RAD 12:00
PROVIDERS: ATTEND Nurse Practitioner Family
DX: E04.2 Nontoxic multinodular goiter (principal)
CPT/HCPCS: 76536

== ENCOUNTER → 2022-01-10 | Outpatient (CLI) | payer MEDICARE | LOC: CARD 12:39 | PROVIDERS: ATTEND Internal Medicine Cardiovascular Disease | DX: I11.9 Hypertensive heart disease without heart failure (principal); I08.0 Rheumatic disorders of both mitral and aortic valves | CPT/HCPCS: 93306 ==

== ENCOUNTER → 2022-04-16 | Outpatient (CLI) | payer MEDICARE | LOC: CARD 13:50 | PROVIDERS: ATTEND Internal Medicine Cardiovascular Disease | DX: I10 Essential (primary) hypertension (principal); I25.10 Atherosclerotic heart disease of native coronary artery without angina pectoris ==